=== PATIENT | male | born 1985 | race Caucasian/White ===

== ENCOUNTER 2020-09-07 12:07 | Emergency (ER) | payer OTHER ==
[2020-09-07] MEDS ORDERED: Sodium Chloride 0.9% 2.5 ML Syringe FLUSH PRN (12:16)
[2020-09-07] MEDS ORDERED: Sodium Chloride 0.9% 1,000 ML IV ONE (12:16)
[2020-09-07] MEDS ORDERED: Sodium Chloride 0.9% 10 ML Syringe FLUSH PRN (12:16)
--- NOTE | 2020-09-07 12:19 | PCM.SN.2 ---
- Free Text/Narrative Note: EKG sinus rhythm with a heart rate of 108 [place] 76 [place] 146 QT 449 incomplete right bundle branch block. Impression no acute injury
[2020-09-07 12:39] LABS: BLOOD UREA NITROGEN,BUN 15 mg/dL (7.0-18.0); CARBON DIOXIDE,CO2 21.8 mmol/L (21.0-32.0); CHLORIDE,CL 103 mmol/L (98-107); GLUCOSE RANDOM 166 mg/dL (74-106); POTASSIUM,K 3.6 mmol/L (3.5-5.1); SODIUM,NA 140 mmol/L (136-148)
[2020-09-07] MEDS ORDERED: Iopamidol 755 MG/ML 500 ML Multipack Bottle IVPUSH ONE (13:13)
--- NOTE | 2020-09-07 13:35 | CT ---
Indication: Chest pain. Technique: Multiple contiguous axial images were obtained from the thoracic inlet through the upper abdomen after the intravenous administration of 100 milliliters Isovue 370.This examination is tailored for the evaluation of pulmonary arteries. Please note that all CT scans at this facility use dose modulation, iterative reconstruction, and/or weight-based dosing when appropriate to reduce radiation dose to as low as reasonably achievable. Comparison: None Findings: The aorta is normal in caliber. There is no evidence of aortic dissection. The heart is normal in size. No pericardial effusion is identified. No pulmonary embolism is identified. No mediastinal, hilar, or axillary lymphadenopathy is identified. Mild emphysematous changes of the lungs are identified. No infiltrate, pleural effusion, or pneumothorax is identified. The visualized portions of the liver and spleen are grossly normal. No lytic or blastic lesions of the spine are identified. Impression: Emphysematous changes, particularly within the right upper lobe. The remainder of lobes within the right lung and throughout the left lung are normal. There is a distinctive difference between the right upper lobe in the remainder of the lungs. No pulmonary embolism or aortic dissection is identified. Please note that all CT scans at this facility use dose modulation, iterative reconstruction, and/or weight-based dosing when appropriate to reduce radiation dose to as low as reasonably achievable. Dictated by Nely Ponce MD @ Sep 07 2020 1:24PM Signed by Dr. Nely Ponce @ Sep 07 2020 1:33PM
--- NOTE | 2020-09-07 15:04 | EDM.PDOC ---
ED HPI GENERAL MEDICAL PROBLEM - General Chief Complaint: Cardiovascular Problem Stated Complaint: dizziness Time Seen by Provider: 09/07/20 12:07 Source of Information: Reports: Patient History Limitations: Reports: No Limitations - History of Present Illness INITIAL COMMENTS - FREE TEXT/NARRATIVE: HISTORY AND PHYSICAL: History of present illness: Patient is a 34-year-old male who presents to the ED today with concern of an episode of dizziness that last about 5 minutes after patient was exerting himself for a fire drill. 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 Patient states he was bent over when he stood up he had an episode of dizziness that lasted about 5 minutes and states he had a coughing episode during this time. Patient states he also had sudden onset of swelling of his right hand and was unable to get his glove back on his hand due to swelling. Upon arrival to the ED, patient states he is not having any residual symptoms and all of his symptoms had resolved and he is no longer having swelling of his right hand. Patient states that he does have extensive family history of coronary artery disease in his mother in her 50s due to a heart attack according to patient. Patient states that he himself has not had any health issues or diagnosis. Patient denies any chest pain or exertional chest pain or dyspnea. Patient states that he quit smoking cigarettes 3 weeks ago and denies any other substance use. Patient denies fever, chills, chest pain, shortness of breath, or cough. Denies headache, neck stiff ness, change in vision, syncope, or near syncope. Denies nausea, vomiting, abdominal pain, diarrhea, constipation, or dysuria. Has not noted any blood in urine or stool. Patient has been eating and drinking appropriately. Review of systems: As per history of present illness and below otherwise all systems reviewed and negative. Past medical history: As per history of present illness and as reviewed below otherwise noncontributory. Surgical history: As per history of present illness and as reviewed below otherwise noncontributory. Social history: See social history for further information Family history: As per history of present illness and as reviewed below otherwise noncontributory. Physical exam: General: Patient is alert, oriented, and in no acute distress. Patient laying comfortably on exam table. Patient initially tachycardic 1102-115 on initial exam otherwise Vitals stable and reviewed by me. HEENT: No lip edema, tongue edema, or oropharyngeal edema. No stridor. Otherwise, atraumatic, normocephalic, pupils equal and reactive bilaterally, negative for conjunctival pallor or scleral icterus, mucous membranes moist, TMs normal bilaterally, throat clear, neck supple, nontender, trachea midline. No drooling or trismus noted. No meningeal signs. No hot potato voice noted. Lungs: Clear to auscultation, breath sounds equal bilaterally, chest nontender. Heart: S1S2, tachycardic regular rate and rhythm without overt murmur Abdomen: Soft, nondistended, nontender. Negative for masses or hepatosplenomegaly. Negative for costovertebral tenderness. Pelvis: Stable nontender. Genitourinary: Deferred. Rectal: Deferred. Skin: Intact, warm, dry. No lesions or rashes noted. Extremities: No obvious deformity of the bilateral upper extremities. Patient has full range of motion of bilateral upper and lower extremities without pain or difficulty. Radial pulses are grossly intact bilaterally with capillary refill less than 2 seconds. Atraumatic, negative for cords or calf pain. Neurovascular unremarkable. Neuro: Awake, alert, oriented. Cranial nerves II through XII unremarkable. Cerebellum unremarkable. Motor and sensory unremarkable throughout. Exam nonfocal. Notes: Patient is initially tachycardic 110s to 115's on my initial exam. However, he does appear comfortable and in no acute distress. Patient states that he did have right hand edema after onset of episode of dizziness/coughing. However, on my exam, he does not have any obvious edema of his hand, no erythema or redness noted, and radial pulses intact with capillary refill less than 2 seconds. He does not have any signs of lip edema, tongue edema, or oropharyngeal edema. No stridor. Upon reexamination of patient, he has not had any continual episodes of di zziness, coughing, or edema of his extremities. His heart rate has improved to 80 to 90 bpm with therapeutics today. I did offer patient a repeat troponin 5/6 hours after onset of his symptoms (would need to be drawn around 5/6PM) but patient declines wanting to do this requesting discharge from the ED. All risks versus benefits discussed with patient and expresses understanding. Incendental findings of imaging discussed with patient and for further evaluation with is PCP. Discussed importance for follow-up with a primary care provider. Strict return precautions thoroughly discussed with patient. Voices understanding and is agreeable to plan of care. Denies any further questions or concerns at this time. Diagnostics: EKG, CBC, CMP, UA, Trop, Ang CT, RUE venous US Therapeutics: None Prescription: None Impression: Dizziness, improved Plan: 1. Follow-up with a primary care provider as discussed. Return to the ED as needed and as discussed. Definitive disposition and diagnosis as appropriate pending reevaluation and review of above. - Related Data Allergies Allergy/AdvReac Type Severity Reaction Status Date / Time No Known Allergies Allergy Verified 09/07/20 12:31 Home Meds: Home Meds Rosuvastatin [Crestor] 09/07/20 [History] lisinopriL [Lisinopril] 09/07/20 [History] Past Medical History - Past Health History Medical/Surgical History: Denies Medical/Surgical History Cardiovascular History: Reports: High Cholesterol, Hypertension Genitourinary History: Reports: Other (See Below) - Past Surgical History HEENT Surgical History: Reports: Oral Surgery Cardiovascular Surgical History: Reports: None Social & Family History - Family History Family Medical History: No Pertinent Family History Cardiac: Reports: Heart Failure, Hypertension, MA Endocrine/Metabolic: Reports: Diabetes, type II - Tobacco Use Tobacco Use Status *Q: Former Tobacco User Used Tobacco, but Quit: Yes Month/Year Tobacco Last Used: "couple of weeks ago" - Caffeine Use Caffeine Use: Reports: Energy Drinks - Recreational Drug Use Recreational Drug Use: No ED ROS GENERAL - Review of Systems Review Of Systems: Comprehensive ROS is negative, except as noted in HPI. ED EXAM, GENERAL - Physical Exam Exam: See Below (see dictation) Course - Vital Signs Last Recorded V/S: Last Vital Signs Temp 98.6 F 09/07/20 15:17 Pulse 82 09/07/20 15:17 Resp 17 09/07/20 15:17 BP 129/69 09/07/20 15:17 Pulse Ox 98 09/07/20 15:17 - Orders/Labs/Meds Orders: Active Orders 24 hr Category Date Time Status Cardiac Monitoring [RC] . DIRECTED Care 09/07/20 12:16 Active EKG Documentation Completion [RC] STAT Care 09/07/20 12:16 Active Venous Doppler Upr Ext Rt [US] Stat Exams 09/07/20 13:12 Taken Sodium Chloride 0.9% [Saline Flush] Med 09/07/20 12:16 Active 10 ml FLUSH ASDIRECTED PRN Sodium Chloride 0.9% [Saline Flush] Med 09/07/20 12:16 Active 2.5 ml FLUSH ASDIRECTED PRN Saline Lock Insert [OM.PC] Stat Oth 09/07/20 12:16 Ordered Medication Orders Sodium Chloride (Saline Flush) 10 ml FLUSH ASDIRECTED PRN PRN Reason: Keep Vein Open Last Admin: 09/07/20 12:51 Dose: 10 ml Documented by: GEORGE Sodium Chloride (Saline Flush) 2.5 ml FLUSH ASDIRECTED PRN PRN Reason: Keep Vein Open Last Admin: 09/07/20 12:51 Dose: 2.5 ml Documented by: GEORGE Labs: Laboratory Tests 09/07/20 09/07/20 Range/Units 12:09 12:09 WBC 12.55 H (4.0-11.0) K/uL RBC 5.09 (4.50-5.90) M/uL Hgb 15.8 (13.0-17.0) g/dL Hct 45.7 (38.0-50.0) % MCV 89.8 (80.0-98.0) fL MCH 31.0 (27.0-32.0) pg MCHC 34.6 (31.0-37.0) g/dL RDW Std Deviation 42.3 (28.0-62.0) fl RDW Coeff of Dionisio 13 (11.0-15.0) % Plt Count 395 (150-400) K/uL MPV 9.20 (7.40-12.00) fL Neut % (Auto) 69.8 (48.0-80.0) % Lymph % (Auto) 21.8 (16.0-40.0) % [place] % (Auto) 5.1 (0.0-15.0) % Eos % (Auto) 2.7 (0.0-7.0) % Baso % (Auto) 0.6 (0.0-1.5) % Neut # (Auto) 8.8 H (1.4-5.7) K/uL Lymph # (Auto) 2.7 H (0.6-2.4) K/uL [place] # (Auto) 0.6 (0.0-0.8) K/uL Eos # (Auto) 0.3 (0.0-0.7) K/uL Baso # (Auto) 0.1 (0.0-0.1) K/uL Nucleated RBC % 0.0 /100WBC Nucleated RBCs # 0 K/uL Sodium 140 (136-148) mmol/L Potassium 3.6 (3.5-5.1) mmol/L Chloride 103 (98-107) mmol/L Carbon Dioxide 21.8 (21.0-32.0) mmol/L BUN 15 (7.0-18.0) mg/dL Creatinine 1.2 (0.8-1.3) mg/dL Est Cr Clr Drug Dosing TNP Estimated GFR (MDRD) > 60.0 ml/min Glucose 166 H (74-106) mg/dL Calcium 9.0 (8.5-10.1) mg/dL Total Bilirubin 0.5 (0.2-1.0) mg/dL AST 26 (15-37) IU/L ALT 61 (14-63) IU/L Alkaline Phosphatase 71 (46-116) U/L Troponin I < 0.050 (0.000-0.056) ng/mL Total Protein 7.4 (6.4-8.2) g/dL Albumin 4.0 (3.4-5.0) g/dL Globulin 3.4 (2.6-4.0) g/dL Albumin/Globulin Ratio 1.2 (0.9-1.6) Meds: Medications Generic Name Dose Route Start Last Admin Trade Name Freq PRN Reason Stop Dose Admin Sodium Chloride 10 ml 09/07/20 12:16 09/07/20 12:51 Saline Flush FLUSH 10 ml ASDIRECTED PRN Administration Keep Vein Open Sodium Chloride 2.5 ml 09/07/20 12:16 09/07/20 12:51 Saline Flush FLUSH 2.5 ml ASDIRECTED PRN Administration Keep Vein Open Discontinued Medications Generic Name Dose Route Start Last Admin Trade Name Freq PRN Reason Stop Dose Admin Sodium Chloride 1,000 mls @ 999 mls/hr 09/07/20 12:16 09/07/20 12:51 Normal Saline IV 09/07/20 13:16 999 mls/hr BOLUS ONE Administration Iopamidol 100 ml 09/07/20 13:13 09/07/20 13:14 Isovue Multipack-370 (76%) IVPUSH 09/07/20 13:14 100 ml ONETIME ONE Administration Departure - Departure Time of Disposition: 15:03 Disposition: Home, Self-Care 01 Clinical Impression: Dizziness - Discharge Information Instructions: Dizziness, [id number] Referrals: [facility] [Primary Care Provider] - Forms: ED Department Discharge Additional Instructions: The following information is given to patients seen in the emergency department who are being discharged to home. This information is to outline your options for follow-up care. We provide all patients seen in our emergency department with a follow-up referral. The need for follow-up, as well as the timing and circumstances, are variable depending upon the specifics of your emergency department visit. If you don't have a primary care physician on staff, we will provide you with a referral. We always advise you to contact your personal physician following an emergency department visit to inform them of the circumstance of the visit and for follow-up with them and/or the need for any referrals to a consulting specialist. The emergency department will also refer you to a specialist when appropriate. This referral assures that you have the opportunity for follow-up care with a specialist. All of these measure are taken in an effort to provide you with optimal care, which includes your follow-up. Under all circumstances we always encourage you to contact your private physician who remains a resource for coordinating your care. When calling for follow-up care, please make the office aware that this follow-up is from your recent emergency room visit. If for any reason you are refused follow-up, please contact the [facility] Emergency Department at and asked to speak to the emergency department charge nurse. [facility] [address] [place] [id number] [address] 1. Follow up with a primary care provider as discussed. Return to the ED as needed and as discussed. Sepsis Event Note (ED) - Evaluation Sepsis Screening Result: No Definite Risk - Focused Exam Vital Signs: Vital Signs Temp Pulse Resp BP Pulse Ox 09/07/20 15:17 98.6 F 82 17 129/69 98 09/07/20 12:08 97.2 F 118 H 18 125/76 95 - My Orders Last 24 Hours: My Active Orders 09/07/20 12:16 Cardiac Monitoring [RC] . DIRECTED EKG Documentation Completion [RC] STAT Sodium Chloride 0.9% [Saline Flush] 10 ml FLUSH ASDIRECTED PRN Sodium Chloride 0.9% [Saline Flush] 2.5 ml FLUSH ASDIRECTED PRN Saline Lock Insert [OM.PC] Stat 09/07/20 13:12 Venous Doppler Upr Ext Rt [US] Stat - Assessment/Plan Last 24 Hours: My Active Orders 09/07/20 12:16 Cardiac Monitoring [RC] . DIRECTED EKG Documentation Completion [RC] STAT Sodium Chloride 0.9% [Saline Flush] 10 ml FLUSH ASDIRECTED PRN Sodium Chloride 0.9% [Saline Flush] 2.5 ml FLUSH ASDIRECTED PRN Saline Lock Insert [OM.PC] Stat 09/07/20 13:12 Venous Doppler Upr Ext Rt [US] Stat
[2020-09-07 15:19] VITALS: BP 129/69; PULSE 82
--- NOTE | 2020-09-09 12:42 | US ---
EXAM DATE: 09/07/20 PATIENT'S AGE: 34 Patient: MARINA ESPAÑA Facility: [facility] Site Site : 1985 Study: US-Extremity Venous RT UPPER-09/07/2020 2:30:30 PM Ordering Physician: JAYLON Final Report: INDICATION: Right hand swelling and redness COMPARISON: None. TECHNIQUE: Right upper extremity and neck venous ultrasound performed including rolon scale/2D, color Doppler, and spectral Doppler imaging including spectral waveform analysis. FINDINGS: The right internal jugular, innominate, subclavian, axillary, cephalic, and brachial veins were patent and negative for thrombus. The right basilic vein was not visualized. Remainder negative. IMPRESSION: No evidence for DVT in the right upper extremity and neck venous system. Dictated by Khoa Shen MD @ Sep 07 2020 2:38PM Signed by: Khoa Shen MD @09/07/2020 2:42:18 PM (Electronic Signature) Report Signed by Proxy. BONNIE
== END 2020-09-07 15:17 | disposition home or self-care (01) ==
LOC: MW.ED 12:07
DX: R42 Dizziness and giddiness (principal); E78.00 Pure hypercholesterolemia, unspecified; I10 Essential (primary) hypertension; Z79.899 Other long term (current) drug therapy; Z87.891 Personal history of nicotine dependence
CPT/HCPCS: 36415; 71275; 80053; 84484; 85025; 93971; 99285; J7030; Q9967; 93010; 99284

== ENCOUNTER 2020-12-06 22:05 | Emergency (ER) | payer OTHER ==
[2020-12-06] MEDS ORDERED: Sodium Chloride 0.9% 10 ML Syringe FLUSH PRN (22:18)
[2020-12-06] MEDS ORDERED: Sodium Chloride 0.9% 2.5 ML Syringe FLUSH PRN (22:18)
[2020-12-06 22:52] LABS: BLOOD UREA NITROGEN,BUN 20 mg/dL (7.0-18.0); CARBON DIOXIDE,CO2 25.2 mmol/L (21.0-32.0); CHLORIDE,CL 104 mmol/L (98-107); GLUCOSE RANDOM 166 mg/dL (74-106); SODIUM,NA 142 mmol/L (136-148)
--- NOTE | 2020-12-06 22:52 | CR ---
INDICATION: Chest pain TECHNIQUE: Chest radiograph 1 view COMPARISON: None FINDINGS: Moderate degradation of image quality noted due to body habitus. Mediastinum: The mediastinum is normal in appearance. The heart silhouette is normal in size and morphology. Lung: Both lungs are unremarkable in appearance. No sign of pleural effusion seen. No pneumothorax is identified. Bone and Soft tissue: Unremarkable for age. IMPRESSION: 1. No acute cardiopulmonary disease is seen. Dictated by: Ranulfo Davis MD @ 12/06/2020 22:50:30 (Electronically Signed)
--- NOTE | 2020-12-06 22:57 | EDM.PDOC ---
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 He suddenly got short of breath. Since then he has had a dull pressure in his chest. For 45 seconds he had a very sharp pain in the anterior chest. He remains short of breath. He is unable to say if he had a diaphoresis related to the pain because he was in bunker gear and it is warm out. The patient did not have nausea. The patient is treated for hypertension. He has not smoked for 3 months. He had a stress test 6 months ago that was good according to him. He [facility] because of a similar episode that happened last August. Speed the patient's mother had a coronary bypass at a young age. His grandmother had coronary vessel disease. The patient had no family history of thromboembolic disease and no personal history and has not been immobilized and does not take any exogenous hormones. Review of systems: As per history of present illness and below otherwise all systems reviewed and negative. Past medical history: As per history of present illness and as reviewed below otherwise noncontributory. Surgical history: As per history of present illness and as reviewed below otherwise noncontributory. Social history: No reported history of drug or alcohol abuse. Family history: As per history of present illness and as reviewed below otherwise noncontribu tory. Physical exam: Constitutional - well developed, well-nourished and in no acute distress HEENT - normocephalic, no evidence of trauma - external nose and mouth normal - no mass in neck and no JVD - mucosae moist EYES - full EOM, PERRL, no icterus - no evidence of inflammation, injection, or drainage Respiratory - no respiratory distress, equal bilateral expansion, lungs clear to auscultation and no abnormal lung sounds Cardiovascular - Regular Rhythm with S1 and S2 appreciated and no murmur, gallop or rub. GI - abdomen soft without distension or organomegaly - normal bowel sounds - no guard or rebound Musculoskeletal no gross deformity of long bones or joints - no tenderness, swelling or edema Neurologic - Alert and oriented times four - CN II-XII grossly intact - motor sensory and coordination symmetrically normal Psychiatric - appropriate mood and affect with normal thought content Hematologic - No petechiae or purpura - mucosa appropriate color and sclera not pale - normal nail bed color and refill Integument - no rash or evidence of trauma - normal turgor Diagnostics: [] Therapeutics: [] Impression: [] Plan: [] Definitive disposition and diagnosis as appropriate pending reevaluation and review of above. - Related Data Allergies Allergy/AdvReac Type Severity Reaction Status Date / Time No Known Allergies Allergy Verified 12/06/20 22:13 Home Meds: Home Meds Rosuvastatin [Crestor] 09/07/20 [History] lisinopriL [Lisinopril] 10 mg PO DAILY 09/07/20 [History] Past Medical History - Past Health History Medical/Surgical History: Denies Medical/Surgical History Other HEENT History: eye sx Cardiovascular History: Reports: High Cholesterol, Hypertension Genitourinary History: Reports: Other (See Below) - Infectious Disease History Infectious Disease History: Reports: Chicken Pox - Past Surgical History HEENT Surgical History: Reports: Oral Surgery Cardiovascular Surgical History: Reports: None GI Surgical History: Reports: Appendectomy Social & Family History - Family History Family Medical History: No Pertinent Family History Cardiac: Reports: Heart Failure, Hypertension, ID Endocrine/Metabolic: Reports: Diabetes, type II - Caffeine Use Caffeine Use: Reports: None - Recreational Drug Use Recreational Drug Use: No ED ROS GENERAL - Review of Systems Review Of Systems: Comprehensive ROS is negative, except as noted in HPI. ED EXAM, GENERAL - Physical Exam Exam: See Below Free Text/Narrative:: My physical exam is in the HPI #2 Interpretation EKG Interpretation Comments: EG sinus tachycardia heart rate 115 axis -3 there is a late transition R wave in the precordium ST and T segments appear within normal limits no prior for comparison impression no obvious acute ID Course - Vital Signs Text/Narrative:: She had no symptoms in the emergency department and his troponin remained negative. Plan discharge [facility] feel [facility] is necessary. Last Recorded V/S: Last Vital Signs Temp 37.0 C 12/06/20 22:09 Pulse 98 12/06/20 23:39 Resp 18 12/06/20 23:39 BP 111/67 12/06/20 23:39 Pulse Ox 97 12/06/20 23:39 - Orders/Labs/Meds Orders: Active Orders 24 hr Category Date Time Status EKG Documentation Completion [RC] AM Care 12/06/20 22:18 Active Sodium Chloride 0.9% [Saline Flush] Med 12/06/20 22:18 Active 10 ml FLUSH ASDIRECTED PRN Sodium Chloride 0.9% [Saline Flush] Med 12/06/20 22:18 Active 2.5 ml FLUSH ASDIRECTED PRN Saline Lock Insert [OM.PC] Stat Oth 12/06/20 22:18 Ordered Medication Orders Sodium Chloride (Sodium Chloride 0.9% 10 Ml Syringe) 10 ml FLUSH ASDIRECTED PRN PRN Reason: Keep Vein Open Sodium Chloride (Sodium Chloride 0.9% 2.5 Ml Syringe) 2.5 ml FLUSH ASDIRECTED PRN PRN Reason: Keep Vein Open Labs: Laboratory Tests 12/06/20 12/06/20 12/06/20 Range/Units 22:13 22:13 23:54 WBC 14.91 H (4.0-11.0) K/uL RBC 4.68 (4.50-5.90) M/uL Hgb 14.9 (13.0-17.0) g/dL Hct 42.1 (38.0-50.0) % MCV 90.0 (80.0-98.0) fL MCH 31.8 (27.0-32.0) pg MCHC 35.4 (31.0-37.0) g/dL RDW Std Deviation 43.1 (28.0-62.0) fl RDW Coeff of Dionisio 13 (11.0-15.0) % Plt Count 343 (150-400) K/uL MPV 9.20 (7.40-12.00) fL Neut % (Auto) 78.8 (48.0-80.0) % Lymph % (Auto) 13.7 L (16.0-40.0) % [place] % (Auto) 4.8 (0.0-15.0) % Eos % (Auto) 2.3 (0.0-7.0) % Baso % (Auto) 0.4 (0.0-1.5) % Neut # (Auto) 11.7 H (1.4-5.7) K/uL Lymph # (Auto) 2.1 (0.6-2.4) K/uL [place] # (Auto) 0.7 (0.0-0.8) K/uL Eos # (Auto) 0.4 (0.0-0.7) K/uL Baso # (Auto) 0.1 (0.0-0.1) K/uL Nucleated RBC % 0.0 /100WBC Nucleated RBCs # 0 K/uL Sodium 142 (136-148) mmol/L Potassium 4.0 (3.5-5.1) mmol/L Chloride 104 (98-107) mmol/L Carbon Dioxide 25.2 (21.0-32.0) mmol/L BUN 20 H (7.0-18.0) mg/dL Creatinine 1.2 (0.8-1.3) mg/dL Est Cr Clr Drug Dosing 78.27 mL/min Estimated GFR (MDRD) > 60.0 ml/min Glucose 166 H (74-106) mg/dL Calcium 8.4 L (8.5-10.1) mg/dL Total Bilirubin 0.5 (0.2-1.0) mg/dL AST 30 (15-37) IU/L ALT 72 H (14-63) IU/L Alkaline Phosphatase 67 (46-116) U/L Troponin I < 0.050 < 0.050 (0.000-0.056) ng/mL Total Protein 7.3 (6.4-8.2) g/dL Albumin 3.8 (3.4-5.0) g/dL Globulin 3.5 (2.6-4.0) g/dL Albumin/Globulin Ratio 1.1 (0.9-1.6) Meds: Medications Generic Name Dose Route Start Last Admin Trade Name Freq PRN Reason Stop Dose Admin Sodium Chloride 10 ml 12/06/20 22:18 Sodium Chloride 0.9% 10 Ml Syringe FLUSH ASDIRECTED PRN Keep Vein Open Sodium Chloride 2.5 ml 12/06/20 22:18 Sodium Chloride 0.9% 2.5 Ml Syringe FLUSH ASDIRECTED PRN Keep Vein Open Departure - Departure Time of Disposition: 00:37 Disposition: Home, Self-Care 01 Condition: Good Clinical Impression: Atypical chest pain - Discharge Information Instructions: Nonspecific Chest Pain, Adult, [id number] Referrals: Keron Smith NP [Primary Care Provider] - Forms: ED Department Discharge Additional Instructions: [facility] - Primary Care [address] [place] [address] [facility] [address] [place] [address] [facility] - cardiology [address] [place] [address] The following information is given to patients seen in the emergency department who are being discharged to home. This information is to outline your options for follow-up care. We provide all patients seen in our emergency department with a follow-up referral. The need for follow-up, as well as the timing and circumstances, are variable depending upon the specifics of your emergency department visit. If you don't have a primary care physician on staff, we will provide you with a referral. We always advise you to contact your personal physician following an emergency department visit to inform them of the circumstance of the visit and for follow-up with them and/or the need for any referrals to a consulting specialist. The emergency department will also refer you to a specialist when appropriate. This referral assures that you have the opportunity for follow-up care with a specialist. All of these measure are taken in an effort to provide you with optimal care, which includes your follow-up. Under all circumstances we always encourage you to contact your private ysician who remains a resource for coordinating your care. When calling for follow-up care, please make the office aware that this follow-up is from your recent emergency room visit. If for any reason you are refused follow-up, please contact the [facility] Emergency Department at and asked to speak to the emergency department charge nurse. Sepsis Event Note (ED) - Evaluation Sepsis Screening Result: No Definite Risk - Focused Exam Vital Signs: Vital Signs Temp Pulse Resp BP Pulse Ox 12/06/20 23:39 98 18 111/67 97 12/06/20 22:09 37.0 C 117 H 18 140/87 95 - My Orders Last 24 Hours: My Active Orders 12/06/20 22:18 EKG Documentation Completion [RC] AM Sodium Chloride 0.9% [Saline Flush] 10 ml FLUSH ASDIRECTED PRN Sodium Chloride 0.9% [Saline Flush] 2.5 ml FLUSH ASDIRECTED PRN Saline Lock Insert [OM.PC] Stat - Assessment/Plan Last 24 Hours: My Active Orders 12/06/20 22:18 EKG Documentation Completion [RC] AM Sodium Chloride 0.9% [Saline Flush] 10 ml FLUSH ASDIRECTED PRN Sodium Chloride 0.9% [Saline Flush] 2.5 ml FLUSH ASDIRECTED PRN Saline Lock Insert [OM.PC] Stat
[2020-12-07 01:29] VITALS: BP 119/71; PULSE 90
== END 2020-12-07 00:45 | disposition home or self-care (01) ==
LOC: MW.ED 22:05
DX: R07.89 Other chest pain (principal); R00.0 Tachycardia, unspecified; E78.00 Pure hypercholesterolemia, unspecified; I10 Essential (primary) hypertension; Z79.899 Other long term (current) drug therapy
CPT/HCPCS: 36415; 71045; 71045-26; 80053; 84484; 85025; 93005; 93010; 99284; 99285-25

== ENCOUNTER 2022-01-24 18:34 | Inpatient (IN) | payer OTHER ==
[2022-01-24] MEDS ORDERED: Albuterol/Ipratropium 3.0-0.5 MG/3 ML Neb Soln ONE (18:40)
[2022-01-24] MEDS ORDERED: Albuterol/Ipratropium 3.0-0.5 MG/3 ML Neb Soln NEB STA (18:41)
[2022-01-24] MEDS ORDERED: Albuterol 0.5% 5 MG/ML Neb Soln 20 ML Bottle NEB STA (18:42)
[2022-01-24] MEDS ORDERED: methylPREDNISolone Sodium Succinate 125 MG/2 ML SDV IVPUSH STA (18:42)
[2022-01-24] MEDS ORDERED: Sodium Chloride 0.9% 1,000 ML IV ONE (18:43)
[2022-01-24] MEDS ORDERED: Sodium Chloride 0.9% 10 ML Syringe FLUSH PRN (18:43)
[2022-01-24] MEDS ORDERED: Sodium Chloride 0.9% 2.5 ML Syringe FLUSH PRN (18:43)
[2022-01-24 19:18] LABS: BLOOD UREA NITROGEN,BUN 14 mg/dL (7.0-18.0); CARBON DIOXIDE,CO2 25.8 mmol/L (21.0-32.0); CHLORIDE,CL 101 mmol/L (98-107); GLUCOSE RANDOM 130 mg/dL (74-106); POTASSIUM,K 4.2 mmol/L (3.5-5.1); SODIUM,NA 138 mmol/L (136-148)
[2022-01-24 19:37] LABS: CORONAVIRUS COVID-19 NAA NEGATIVE (NEGATIVE); INFLUENZA A NAA NEGATIVE (NEGATIVE); INFLUENZA B NAA NEGATIVE (NEGATIVE)
[2022-01-24] MEDS ORDERED: Azithromycin 500 MG in Sodium Chloride 0.9% 250 ML IV ONE (20:11)
[2022-01-24] MEDS ORDERED: cefTRIAXone 1 GM in Sodium Chloride 0.9% 50 ML IV ONE (20:11)
[2022-01-24] MEDS ORDERED: Iopamidol 755 MG/ML 500 ML Multipack Bottle IVPUSH ONE (20:17)
[2022-01-24] MEDS ORDERED: cefTRIAXone 1 GM AdvVial IV ONE (20:37)
[2022-01-24] MEDS ORDERED: Sodium Chloride 0.9% 50 ML ONE (20:37)
[2022-01-24] MEDS ORDERED: Acetaminophen 325 MG Tab PO PRN (23:42)
[2022-01-25] MEDS: Albuterol/Ipratropium 3.0-0.5 MG/3 ML Neb Soln NEB SCH ×6 (01:05→21:04)
[2022-01-25] MEDS: Lactated Ringers 1,000 ML IV SCH ×3 (01:06→19:02)
[2022-01-25 06:57] LABS: BLOOD UREA NITROGEN,BUN 15 mg/dL (7.0-18.0); CARBON DIOXIDE,CO2 22.4 mmol/L (21.0-32.0); CHLORIDE,CL 103 mmol/L (98-107); GLUCOSE RANDOM 167 mg/dL (74-106); POTASSIUM,K 4.5 mmol/L (3.5-5.1); SODIUM,NA 136 mmol/L (136-148)
[2022-01-25] MEDS: Enoxaparin 40 MG/0.4 ML Syringe SUBCUT SCH (09:42)
[2022-01-25] MEDS: methylPREDNISolone Sodium Succinate 125 MG/2 ML SDV IVPUSH SCH (09:42)
[2022-01-25] MEDS: Azithromycin 500 MG in Sodium Chloride 0.9% 250 ML IV SCH (09:43)
[2022-01-25] MEDS: cefTRIAXone 1 GM in Sodium Chloride 0.9% 50 ML IV SCH (09:43)
[2022-01-25] MEDS: Codeine/guaiFENesin 10-100 MG/5 ML Syrup 5 ML Cup PO PRN (17:29)
[2022-01-26] MEDS: Codeine/guaiFENesin 10-100 MG/5 ML Syrup 5 ML Cup PO PRN ×4 (00:23→23:33)
[2022-01-26] MEDS: Albuterol/Ipratropium 3.0-0.5 MG/3 ML Neb Soln NEB SCH ×6 (02:32→21:27)
[2022-01-26] MEDS: Lactated Ringers 1,000 ML IV SCH (03:23)
[2022-01-26 07:07] LABS: BLOOD UREA NITROGEN,BUN 14 mg/dL (7.0-18.0); CARBON DIOXIDE,CO2 26.5 mmol/L (21.0-32.0); CHLORIDE,CL 104 mmol/L (98-107); GLUCOSE RANDOM 128 mg/dL (74-106); POTASSIUM,K 3.9 mmol/L (3.5-5.1); SODIUM,NA 139 mmol/L (136-148)
[2022-01-26] MEDS: Rosuvastatin 10 MG Tab PO SCH (08:26)
[2022-01-26] MEDS: Lisinopril 10 MG Tab PO SCH (08:26)
[2022-01-26] MEDS: methylPREDNISolone Sodium Succinate 125 MG/2 ML SDV IVPUSH SCH (08:26)
[2022-01-26] MEDS: Enoxaparin 40 MG/0.4 ML Syringe SUBCUT SCH (08:28)
[2022-01-26] MEDS: amLODIPine 5 MG Tab PO SCH (08:28)
[2022-01-26] MEDS: Azithromycin 500 MG in Sodium Chloride 0.9% 250 ML IV SCH (08:29)
[2022-01-26] MEDS: cefTRIAXone 1 GM in Sodium Chloride 0.9% 50 ML IV SCH (08:29)
[2022-01-26] MEDS: Levofloxacin/Dextrose 5%-Water 750 MG in Premix Bag 1 BAG IV SCH (13:54)
[2022-01-26] MEDS: Fluticasone/Salmeterol 250-50 MCG Inhalation Powder 14/Diskus INH SCH (21:25)
[2022-01-27] MEDS: Albuterol/Ipratropium 3.0-0.5 MG/3 ML Neb Soln NEB SCH ×4 (01:26→14:54)
[2022-01-27 07:06] LABS: BLOOD UREA NITROGEN,BUN 18 mg/dL (7.0-18.0); CARBON DIOXIDE,CO2 27.2 mmol/L (21.0-32.0); CHLORIDE,CL 101 mmol/L (98-107); GLUCOSE RANDOM 156 mg/dL (74-106); POTASSIUM,K 3.4 mmol/L (3.5-5.1); SODIUM,NA 139 mmol/L (136-148)
[2022-01-27] MEDS: Codeine/guaiFENesin 10-100 MG/5 ML Syrup 5 ML Cup PO PRN ×2 (07:49→14:53)
[2022-01-27] MEDS: amLODIPine 5 MG Tab PO SCH (08:00)
[2022-01-27] MEDS: Enoxaparin 40 MG/0.4 ML Syringe SUBCUT SCH (08:00)
[2022-01-27] MEDS: Lisinopril 10 MG Tab PO SCH (08:01)
[2022-01-27] MEDS: methylPREDNISolone Sodium Succinate 125 MG/2 ML SDV IVPUSH SCH (08:01)
[2022-01-27] MEDS: Rosuvastatin 10 MG Tab PO SCH (08:02)
[2022-01-27] MEDS: Fluticasone/Salmeterol 250-50 MCG Inhalation Powder 14/Diskus INH SCH (08:03)
[2022-01-27] MEDS: Levofloxacin/Dextrose 5%-Water 750 MG in Premix Bag 1 BAG IV SCH (11:59)
[2022-01-27 17:45] VITALS: BP 130/74; PULSE 105
== END 2022-01-27 15:30 | disposition home or self-care (01) | DRG 190 ==
LOC: MW.ED 18:34 → MW.MS 23:03
PROVIDERS: ADMIT Student in an Organized Health Care Education/Training Program; ATTEND Student in an Organized Health Care Education/Training Program
DX: J44.0 Chronic obstructive pulmonary disease with (acute) lower respiratory infection (principal); J18.9 Pneumonia, unspecified organism; J45.901 Unspecified asthma with (acute) exacerbation; J44.1 Chronic obstructive pulmonary disease with (acute) exacerbation; Z79.899 Other long term (current) drug therapy; E78.00 Pure hypercholesterolemia, unspecified; Z20.822 Contact with and (suspected) exposure to COVID-19; I10 Essential (primary) hypertension; F17.200 Nicotine dependence, unspecified, uncomplicated; E78.5 Hyperlipidemia, unspecified; Z90.49 Acquired absence of other specified parts of digestive tract
CPT/HCPCS: 0240U; 36415; 71045; 71275; 80048; 80053; 82803; 83735; 84100; 85025; 87040; 94640; 96365; 96367; 96375; 99285; A9270-GY; J0456; J0696; J1650; J1956; J2930; J3490; J7030; J7050; J7120; J7620-GY; Q9967

== ENCOUNTER 2022-02-23 07:48 | Day surgery (SDC) | payer OTHER ==
[~2022-02-23 07:48] MED LIST: Albuterol 0.083% 2.5 MG/3 ML Neb Soln NEB PRN; HYDROmorphone 1 MG/ML Syringe IVPUSH PRN; Lactated Ringers 1,000 ML IV SCH; Metoclopramide 10 MG/2 ML SDV IVPUSH PRN; Morphine 4 MG/ML VIAL IVPUSH PRN; Naloxone 0.4 MG/ML SDV IVPUSH PRN; Ondansetron 4 MG/2 ML SDV IVPUSH PRN; ceFAZolin 2 GM in Premix Bag 1 BAG IV ONE; fentaNYL 100 MCG/2 ML SDV IVPUSH PRN
[2022-02-23] MEDS ORDERED: Propofol 200 MG/20 ML SDV ONE (08:42)
[2022-02-23] MEDS ORDERED: Midazolam 1 MG/ML 2 ML SDV ONE (08:42)
[2022-02-23] MEDS ORDERED: fentaNYL 100 MCG/2 ML SDV ONE ×2 (08:42→11:09)
[2022-02-23] MEDS ORDERED: Bupivacaine 0.5% 10 ML SDV ONE (09:31)
[2022-02-23] MEDS ORDERED: Ropivacaine 0.5% 5 MG/ML 30 ML SDV ONE (09:32)
[2022-02-23] MEDS ORDERED: Dexamethasone 4 MG/ML 5 ML MDV ONE (10:07)
[2022-02-23] MEDS ORDERED: ceFAZolin 1 GM Vial ONE (10:41)
[2022-02-23] MEDS ORDERED: Ondansetron 4 MG/2 ML SDV ONE (10:41)
[2022-02-23] MEDS ORDERED: Ketorolac 30 MG/ML SDV ONE (10:41)
[2022-02-23] MEDS ORDERED: Ondansetron 4 MG/2 ML SDV IVPUSH PRN (11:19)
[2022-02-23] MEDS ORDERED: Morphine 4 MG/ML VIAL IVPUSH PRN (11:19)
[2022-02-23] MEDS ORDERED: Acetaminophen/HYDROcodone 325-5 MG Tab PO PRN (11:19)
[2022-02-23] MEDS ORDERED: Lactated Ringers 1,000 ML IV SCH (11:30)
[2022-02-23 13:05] VITALS: BP 124/70; PULSE 78
== END 2022-02-23 12:47 | disposition home or self-care (01) ==
LOC: MW.SDS 07:48
PROVIDERS: ATTEND Surgery
DX: K42.0 Umbilical hernia with obstruction, without gangrene (principal); F41.9 Anxiety disorder, unspecified; E66.9 Obesity, unspecified; Z68.39 Body mass index [BMI] 39.0-39.9, adult; Z90.49 Acquired absence of other specified parts of digestive tract; Z87.891 Personal history of nicotine dependence; Z80.3 Family history of malignant neoplasm of breast
CPT/HCPCS: 49587; C1781; J0690; J1100; J1885; J2250; J2370; J2704; J2795; J3010; J3490; J7120; J2405

== ENCOUNTER 2022-12-18 17:20 | Inpatient (IN) | payer OTHER ==
[2022-12-18] MEDS ORDERED: Sodium Chloride 0.9% 10 ML Syringe FLUSH PRN (18:06)
[2022-12-18] MEDS ORDERED: Sodium Chloride 0.9% 2.5 ML Syringe FLUSH PRN (18:06)
[2022-12-18 18:35] LABS: CARBON DIOXIDE,CO2 24.9 mmol/L (21.0-32.0)
[2022-12-18] MEDS ORDERED: Sodium Chloride 0.9% 1,000 ML IV STA ×2 (18:36→19:48)
[2022-12-18] MEDS ORDERED: Morphine 4 MG/ML Syringe IVPUSH STA (18:36)
[2022-12-18] MEDS ORDERED: Iopamidol 755 MG/ML 500 ML Multipack Bottle IVPUSH ONE (19:12)
[2022-12-18 19:13] LABS: CORONAVIRUS COVID-19 NAA NEGATIVE (NEGATIVE); INFLUENZA A NAA NEGATIVE (NEGATIVE); INFLUENZA B NAA NEGATIVE (NEGATIVE)
[2022-12-18] MEDS ORDERED: HYDROmorphone 1 MG/ML Syringe IVPUSH STA ×2 (19:48→21:27)
[2022-12-18] MEDS ORDERED: Piperacillin/Tazobactam 3.375 GM in Sodium Chloride 0.9% 50 ML IV STA (19:51)
[2022-12-18] MEDS ORDERED: Sodium Chloride 0.9% 100 ML ONE (20:47)
[2022-12-18] MEDS ORDERED: Pantoprazole 40 MG in Sodium Chloride 0.9% 10 ML IVPUSH STA (20:56)
[2022-12-18] MEDS ORDERED: Sodium Chloride 0.9% 1,000 ML IV ONE (21:16)
[2022-12-18] MEDS ORDERED: Ondansetron 4 MG/2 ML SDV IVPUSH PRN (21:17)
[2022-12-18] MEDS ORDERED: LORazepam 2 MG/ML SDV IVPUSH PRN (21:21)
[2022-12-18] MEDS: Thiamine 200 MG/2 ML MDV IVPUSH SCH (22:25)
[2022-12-18] MEDS: Folic Acid 1 MG/0.2 ML UD Syringe SUBCUT SCH (22:25)
[2022-12-18] MEDS: Sodium Chloride 0.9% 1,000 ML IV SCH (22:26)
[2022-12-19] MEDS: HYDROmorphone 2 MG/ML Syringe IVPUSH PRN ×7 (00:34→23:27)
[2022-12-19] MEDS ORDERED: Sodium Chloride 0.9% 50 ML ONE (01:18)
[2022-12-19] MEDS: Piperacillin/Tazobactam 3.375 GM in Sodium Chloride 0.9% 50 ML IV SCH ×2 (01:41→09:58)
[2022-12-19] MEDS: Sodium Chloride 0.9% 1,000 ML IV SCH ×4 (04:18→20:29)
[2022-12-19 07:09] LABS: CARBON DIOXIDE,CO2 22.7 mmol/L (21.0-32.0)
[2022-12-19] MEDS: Pantoprazole 40 MG in Sodium Chloride 0.9% 10 ML IVPUSH SCH ×2 (08:24→20:58)
[2022-12-19] MEDS: Folic Acid 1 MG/0.2 ML UD Syringe SUBCUT SCH (08:26)
[2022-12-19] MEDS: Thiamine 200 MG/2 ML MDV IVPUSH SCH (08:30)
[2022-12-19] MEDS: Piperacillin/Tazobactam 3.375 GM in Sodium Chloride 0.9% 100 ML IV SCH ×3 (09:18→21:03)
[2022-12-20] MEDS: Sodium Chloride 0.9% 1,000 ML IV SCH ×3 (02:36→14:12)
[2022-12-20] MEDS: Piperacillin/Tazobactam 3.375 GM in Sodium Chloride 0.9% 100 ML IV SCH ×4 (02:37→20:17)
[2022-12-20] MEDS: HYDROmorphone 2 MG/ML Syringe IVPUSH PRN ×2 (02:42→06:55)
[2022-12-20 06:51] LABS: CARBON DIOXIDE,CO2 22.7 mmol/L (21.0-32.0); POTASSIUM,K 3.9 mmol/L (3.5-5.1)
[2022-12-20] MEDS: Pantoprazole 40 MG in Sodium Chloride 0.9% 10 ML IVPUSH SCH ×2 (08:48→20:18)
[2022-12-20] MEDS: Thiamine 200 MG/2 ML MDV IVPUSH SCH (08:54)
[2022-12-20] MEDS: Folic Acid 1 MG/0.2 ML UD Syringe SUBCUT SCH (08:57)
[2022-12-20] MEDS ORDERED: Phosphorus #1 250 MG Tab PO ONE (09:36)
[2022-12-20] MEDS: oxyCODONE 5 MG Tab PO PRN ×3 (10:47→18:45)
[2022-12-20] MEDS: Heparin Sodium 5,000 Units/ML Vial SUBCUT SCH ×2 (15:20→22:08)
[2022-12-20] MEDS: Lisinopril 10 MG Tab PO SCH (16:29)
[2022-12-20] MEDS: amLODIPine 5 MG Tab PO SCH (16:29)
[2022-12-20] MEDS: Cyclobenzaprine 5 MG Tab PO PRN (22:07)
[2022-12-21] MEDS: oxyCODONE 5 MG Tab PO PRN ×6 (00:36→22:59)
[2022-12-21] MEDS: Piperacillin/Tazobactam 3.375 GM in Sodium Chloride 0.9% 100 ML IV SCH ×4 (03:25→22:00)
[2022-12-21] MEDS: Heparin Sodium 5,000 Units/ML Vial SUBCUT SCH ×3 (06:08→22:00)
[2022-12-21 06:36] LABS: CARBON DIOXIDE,CO2 24.1 mmol/L (21.0-32.0); POTASSIUM,K 3.5 mmol/L (3.5-5.1)
[2022-12-21 08:40] LABS: HEMOGLOBIN A1C 6.5 %
[2022-12-21] MEDS ORDERED: Potassium Phosphates 30 MMOLE in Sodium Chloride 0.9% 500 ML IV ONE (09:00)
[2022-12-21] MEDS: Pantoprazole 40 MG in Sodium Chloride 0.9% 10 ML IVPUSH SCH ×2 (09:06→22:00)
[2022-12-21] MEDS: Thiamine 200 MG/2 ML MDV IVPUSH SCH (09:12)
[2022-12-21] MEDS: Lisinopril 10 MG Tab PO SCH (09:34)
[2022-12-21] MEDS: Folic Acid 1 MG/0.2 ML UD Syringe SUBCUT SCH (09:35)
[2022-12-21] MEDS: amLODIPine 5 MG Tab PO SCH (09:35)
[2022-12-21] MEDS: Sodium Chloride 0.9% 1,000 ML IV SCH ×2 (12:36→19:46)
[2022-12-22] MEDS: oxyCODONE 5 MG Tab PO PRN ×3 (03:18→12:54)
[2022-12-22] MEDS: Piperacillin/Tazobactam 3.375 GM in Sodium Chloride 0.9% 100 ML IV SCH ×4 (03:18→20:55)
[2022-12-22] MEDS: Heparin Sodium 5,000 Units/ML Vial SUBCUT SCH ×3 (05:59→22:32)
[2022-12-22 06:37] LABS: CARBON DIOXIDE,CO2 23.2 mmol/L (21.0-32.0); POTASSIUM,K 3.5 mmol/L (3.5-5.1)
[2022-12-22] MEDS: Lisinopril 10 MG Tab PO SCH (08:32)
[2022-12-22] MEDS: amLODIPine 5 MG Tab PO SCH (08:34)
[2022-12-22] MEDS: Pantoprazole 40 MG in Sodium Chloride 0.9% 10 ML IVPUSH SCH ×2 (08:41→20:55)
[2022-12-22] MEDS: Folic Acid 1 MG/0.2 ML UD Syringe SUBCUT SCH (08:42)
[2022-12-22] MEDS: Thiamine 200 MG/2 ML MDV IVPUSH SCH (08:43)
[2022-12-22] MEDS ORDERED: Iopamidol 755 MG/ML 500 ML Multipack Bottle IVPUSH STA (10:33)
[2022-12-22] MEDS: Sodium Chloride 0.9% 1,000 ML IV SCH (15:08)
[2022-12-22] MEDS: HYDROmorphone 1 MG/ML Syringe IVPUSH PRN ×3 (15:29→22:31)
[2022-12-23] MEDS: Sodium Chloride 0.9% 1,000 ML IV SCH ×3 (00:17→15:18)
[2022-12-23] MEDS: HYDROmorphone 1 MG/ML Syringe IVPUSH PRN ×3 (02:13→09:03)
[2022-12-23] MEDS: Piperacillin/Tazobactam 3.375 GM in Sodium Chloride 0.9% 100 ML IV SCH ×4 (03:10→21:26)
[2022-12-23] MEDS: Heparin Sodium 5,000 Units/ML Vial SUBCUT SCH ×3 (06:04→23:02)
[2022-12-23 07:26] LABS: CARBON DIOXIDE,CO2 20.4 mmol/L (21.0-32.0); POTASSIUM,K 3.3 mmol/L (3.5-5.1)
[2022-12-23] MEDS: Pantoprazole 40 MG in Sodium Chloride 0.9% 10 ML IVPUSH SCH ×2 (09:08→21:26)
[2022-12-23] MEDS: amLODIPine 5 MG Tab PO SCH (09:14)
[2022-12-23] MEDS: Lisinopril 10 MG Tab PO SCH (09:15)
[2022-12-23] MEDS: Thiamine 200 MG/2 ML MDV IVPUSH SCH (09:17)
[2022-12-23] MEDS: Folic Acid 1 MG/0.2 ML UD Syringe SUBCUT SCH (09:18)
[2022-12-23] MEDS ORDERED: Potassium Phosphates 30 MMOLE in Sodium Chloride 0.9% 1,000 ML IV ONE (10:30)
[2022-12-23] MEDS: Morphine 4 MG/ML Syringe IVPUSH PRN ×5 (10:55→23:06)
[2022-12-23] MEDS ORDERED: fentaNYL 50 MCG/ML SDV IVPUSH SCH (18:45)
[2022-12-23] MEDS ORDERED: fentaNYL 50 MCG/ML SDV IVPUSH PRN (18:58)
[2022-12-23] MEDS ORDERED: VANCOmycin 2 GM/400 ML 2 GM in Premix Bag 1 BAG IV ONE (19:00)
[2022-12-23] MEDS: Cyclobenzaprine 5 MG Tab PO PRN (23:05)
[2022-12-24] MEDS: Morphine 4 MG/ML Syringe IVPUSH PRN ×8 (01:42→23:56)
[2022-12-24] MEDS: Sodium Chloride 0.9% 1,000 ML IV SCH ×5 (03:15→18:26)
[2022-12-24] MEDS: Piperacillin/Tazobactam 3.375 GM in Sodium Chloride 0.9% 100 ML IV SCH ×2 (03:16→09:27)
[2022-12-24] MEDS: Heparin Sodium 5,000 Units/ML Vial SUBCUT SCH ×3 (07:02→23:51)
[2022-12-24 07:34] LABS: CARBON DIOXIDE,CO2 19.3 mmol/L (21.0-32.0); POTASSIUM,K 3.7 mmol/L (3.5-5.1)
[2022-12-24] MEDS: Cyclobenzaprine 5 MG Tab PO PRN ×2 (08:19→20:47)
[2022-12-24] MEDS: amLODIPine 5 MG Tab PO SCH (08:20)
[2022-12-24] MEDS: Lisinopril 10 MG Tab PO SCH (08:21)
[2022-12-24] MEDS: Thiamine 200 MG/2 ML MDV IVPUSH SCH (08:23)
[2022-12-24] MEDS: Pantoprazole 40 MG in Sodium Chloride 0.9% 10 ML IVPUSH SCH ×2 (08:27→20:47)
[2022-12-24] MEDS: Folic Acid 1 MG/0.2 ML UD Syringe SUBCUT SCH (08:28)
[2022-12-24] MEDS ORDERED: Sodium Chloride 0.9% 1,000 ML IV ONE (09:10)
[2022-12-25] MEDS: Sodium Chloride 0.9% 1,000 ML IV SCH ×3 (02:31→10:36)
[2022-12-25] MEDS: oxyCODONE 5 MG Tab PO PRN ×5 (02:35→22:36)
[2022-12-25 06:41] LABS: CARBON DIOXIDE,CO2 21.4 mmol/L (21.0-32.0); POTASSIUM,K 3.4 mmol/L (3.5-5.1)
[2022-12-25] MEDS: Heparin Sodium 5,000 Units/ML Vial SUBCUT SCH ×3 (06:47→22:35)
[2022-12-25] MEDS: Folic Acid 1 MG/0.2 ML UD Syringe SUBCUT SCH (08:34)
[2022-12-25] MEDS: Thiamine 200 MG/2 ML MDV IVPUSH SCH (08:36)
[2022-12-25] MEDS: Lisinopril 10 MG Tab PO SCH (08:37)
[2022-12-25] MEDS: amLODIPine 5 MG Tab PO SCH (08:38)
[2022-12-25] MEDS: Pantoprazole 40 MG in Sodium Chloride 0.9% 10 ML IVPUSH SCH ×2 (08:39→20:08)
[2022-12-25] MEDS: Morphine 4 MG/ML Syringe IVPUSH PRN (08:40)
[2022-12-25] MEDS: Potassium Chloride 20 MEQ Tab.ER PO SCH ×2 (10:08→20:08)
[2022-12-25] MEDS: Metoprolol Tartrate 25 MG Tab PO SCH (13:49)
[2022-12-25] MEDS: Acetaminophen 325 MG Tab PO PRN (21:20)
[2022-12-25] MEDS: Cyclobenzaprine 5 MG Tab PO PRN (22:35)
[2022-12-26] MEDS: Metoprolol Tartrate 25 MG Tab PO SCH (00:35)
[2022-12-26] MEDS: oxyCODONE 5 MG Tab PO PRN ×2 (04:07→09:15)
[2022-12-26] MEDS: Heparin Sodium 5,000 Units/ML Vial SUBCUT SCH (06:06)
[2022-12-26 06:52] LABS: CARBON DIOXIDE,CO2 22.8 mmol/L (21.0-32.0); POTASSIUM,K 3.4 mmol/L (3.5-5.1)
[2022-12-26] MEDS ORDERED: Iopamidol 755 MG/ML 500 ML Multipack Bottle IVPUSH ONE (07:42)
[2022-12-26] MEDS: Pantoprazole 40 MG in Sodium Chloride 0.9% 10 ML IVPUSH SCH (08:21)
[2022-12-26] MEDS: Folic Acid 1 MG/0.2 ML UD Syringe SUBCUT SCH (08:22)
[2022-12-26] MEDS: Acetaminophen 325 MG Tab PO PRN (08:22)
[2022-12-26] MEDS: amLODIPine 5 MG Tab PO SCH (08:23)
[2022-12-26] MEDS: Cyclobenzaprine 5 MG Tab PO PRN (08:23)
[2022-12-26] MEDS: Lisinopril 10 MG Tab PO SCH (08:23)
[2022-12-26] MEDS: Thiamine 200 MG/2 ML MDV IVPUSH SCH (08:24)
[2022-12-26 12:14] VITALS: BP 140/84; PULSE 111
== END 2022-12-26 12:45 | DRG 439 ==
LOC: MW.ED 17:20 → MW.MS 21:17 → OBSVTOIN 12-20 09:39 → MW.MS 12-20 11:21
PROVIDERS: ADMIT Internal Medicine; ATTEND Internal Medicine
DX: K85.00 Idiopathic acute pancreatitis without necrosis or infection (principal); N13.30 Unspecified hydronephrosis; R18.8 Other ascites; Z68.41 Body mass index [BMI] 40.0-44.9, adult; K59.00 Constipation, unspecified; K29.80 Duodenitis without bleeding; I10 Essential (primary) hypertension; E11.9 Type 2 diabetes mellitus without complications; F10.90 Alcohol use, unspecified, uncomplicated; E78.00 Pure hypercholesterolemia, unspecified; E66.01 Morbid (severe) obesity due to excess calories; F17.210 Nicotine dependence, cigarettes, uncomplicated; J44.9 Chronic obstructive pulmonary disease, unspecified; Z20.822 Contact with and (suspected) exposure to COVID-19; Z90.49 Acquired absence of other specified parts of digestive tract; Z79.899 Other long term (current) drug therapy; Z98.890 Other specified postprocedural states; Z82.49 Family history of ischemic heart disease and other diseases of the circulatory system
CPT/HCPCS: 0240U; 36415; 71045; 71045-26; 74174; 74174-26; 74177; 74177-26; 76705; 76705-26; 76870; 76870-26; 80053; 80061; 80202; 81001; 82947; 83036; 83605; 83690; 83735; 84100; 85007; 85025; 85027; 87040; 93976; 93976-26; 96361; 96365; 96366; 96372; 96375; 96376; 99285; 99285-25; A9270-GY; C9113; G0378; J1170; J1644; J2270; J2543; J3010; J3370; J3411; J3490; J7030; J7040; J7050; Q9967

== ENCOUNTER 2024-01-10 08:46 | Emergency (ER) | payer OTHER ==
[2024-01-10] MEDS: predniSONE 20 MG Tab PO ONE (09:42)
[2024-01-10 09:43] LABS: CORONAVIRUS COVID-19 NAA NEGATIVE (NEGATIVE); INFLUENZA A NAA NEGATIVE (NEGATIVE); INFLUENZA B NAA NEGATIVE (NEGATIVE); RESPIRATORY SYNCYTIAL VIR NAA NEGATIVE (NEGATIVE)
[2024-01-10] MEDS: Albuterol/Ipratropium 3.0-0.5 MG/3 ML Neb Soln NEB ONE ×2 (09:43→11:19)
[2024-01-10 09:49] LABS: BASOPHILS ABSOLUTE AUTO 0.13 K/uL (0.00-0.20); BASOPHILS PERCENT AUTO 0.9 % (0.0-1.0); EOSINOPHILS ABSOLUTE AUTO 1.13 K/uL (0.00-0.45); EOSINOPHILS PERCENT AUTO 8.1 % (0.0-6.0); HEMATOCRIT 44.1 % (42.0-52.0); HEMOGLOBIN 15.7 g/dL (14.0-18.0); IMMATURE GRAN ABSOLUTE AUTO 0.07 K/uL (0.00-0.05); IMMATURE GRAN PERCENT AUTO 0.5 % (0.0-0.4); LYMPHOCYTES ABSOLUTE AUTO 2.05 K/uL (1.00-4.80); LYMPHOCYTES PERCENT AUTO 14.7 % (24.0-44.0); MEAN CORPUSCULAR HEMOGLOBIN 31.5 pg (28.0-32.0); MEAN CORPUSCULAR HGB CONC 35.6 g/dL (32.0-36.0); MEAN CORPUSCULAR VOLUME 88.4 fL (83.0-99.0); MEAN PLATELET VOLUME 8.7 fL (9.4-12.4); MONOCYTES ABSOLUTE AUTO 0.82 K/uL (0.00-0.80); MONOCYTES PERCENT AUTO 5.9 % (0.0-8.0); NEUTROPHILS ABSOLUTE AUTO 9.79 K/uL (1.80-7.70); NEUTROPHILS PERCENT AUTO 69.9 % (41.0-71.0); PLATELET COUNT,PLT 353 K/uL (150-400); RED BLOOD CELL COUNT 4.99 M/uL (4.52-5.90); WHITE BLOOD CELL COUNT,WBC 13.99 K/uL (3.9-11.3)
[2024-01-10 10:10] LABS: INR 1.07 (0.86-1.11)
[2024-01-10 10:30] LABS: A/G RATIO 0.9 (0.9-1.6); ALBUMIN 3.6 g/dL (3.4-5.0); BILIRUBIN TOTAL 0.8 mg/dL (0.2-1.0); CALCIUM 9.2 mg/dL (8.5-10.1); CARBON DIOXIDE,CO2 23.1 mmol/L (21.0-32.0); CREATININE 0.9 mg/dL (0.8-1.3); EST CRCL DRUG DOSING (CG) 101.41 mL/min; PROTEIN TOTAL,TP 7.6 g/dL (6.4-8.2)
[2024-01-10 12:37] VITALS: BP 124/80
[2024-01-10] MEDS: Albuterol 0.083% 2.5 MG/3 ML Neb Soln NEB ONE (14:39)
[2024-01-10 14:41] VITALS: PULSE 105
== END 2024-01-10 14:57 | disposition home or self-care (01) ==
LOC: MW.ED 08:46
DX: J45.909 Unspecified asthma, uncomplicated (principal); E78.00 Pure hypercholesterolemia, unspecified; I10 Essential (primary) hypertension; E66.9 Obesity, unspecified; Z79.899 Other long term (current) drug therapy; Z86.19 Personal history of other infectious and parasitic diseases; Z86.16 Personal history of COVID-19; Z68.41 Body mass index [BMI] 40.0-44.9, adult
CPT/HCPCS: 0241U; 36415; 71046; 80053; 83880; 84484; 85025; 85610; 93005; 94640; 99285; A9270; J7620-GY

== ENCOUNTER 2024-07-15 21:20 | Emergency (ER) | payer OTHER ==
[2024-07-15] MEDS ORDERED: Sodium Chloride 0.9% 10 ML Syringe FLUSH PRN (21:22)
[2024-07-15 22:23] LABS: BASOPHILS ABSOLUTE AUTO 0.11 K/uL (0.00-0.20); BASOPHILS PERCENT AUTO 0.9 % (0.0-1.0); EOSINOPHILS ABSOLUTE AUTO 0.33 K/uL (0.00-0.45); EOSINOPHILS PERCENT AUTO 2.8 % (0.0-6.0); IMMATURE GRAN ABSOLUTE AUTO 0.04 K/uL (0.00-0.05); IMMATURE GRAN PERCENT AUTO 0.3 % (0.0-0.4); LYMPHOCYTES ABSOLUTE AUTO 2.28 K/uL (1.00-4.80); LYMPHOCYTES PERCENT AUTO 19.2 % (24.0-44.0); MEAN CORPUSCULAR HEMOGLOBIN 31.1 pg (28.0-32.0); MEAN CORPUSCULAR HGB CONC 35.6 g/dL (32.0-36.0); MEAN CORPUSCULAR VOLUME 87.4 fL (83.0-99.0); MEAN PLATELET VOLUME 8.8 fL (9.4-12.4); MONOCYTES ABSOLUTE AUTO 0.54 K/uL (0.00-0.80); MONOCYTES PERCENT AUTO 4.5 % (0.0-8.0); NEUTROPHILS PERCENT AUTO 72.3 % (41.0-71.0); PLATELET COUNT,PLT 400 K/uL (150-400); RED BLOOD CELL COUNT 5.15 M/uL (4.52-5.90)
[2024-07-15] MEDS: Labetalol 100 MG/20 ML MDV IVPUSH ONE (22:23)
[2024-07-15 22:53] LABS: A/G RATIO 1.1 (0.9-1.6); BILIRUBIN TOTAL 0.7 mg/dL (0.2-1.0); CALCIUM 9.5 mg/dL (8.5-10.1); CREATININE 1.1 mg/dL (0.8-1.3); EST CRCL DRUG DOSING (CG) 82.97 mL/min; MAGNESIUM 1.8 mg/dL (1.8-2.4); POTASSIUM,K 3.7 mmol/L (3.5-5.1); PROTEIN TOTAL,TP 7.5 g/dL (6.4-8.2)
[2024-07-15] MEDS: Iopamidol 755 MG/ML 500 ML Multipack Bottle IVPUSH ONE (23:11)
[2024-07-16] MEDS: Ketorolac 30 MG/ML SDV IVPUSH ONE (00:27)
[2024-07-16 00:37] VITALS: BP 127/86; PULSE 86
== END 2024-07-16 00:32 | disposition home or self-care (01) ==
LOC: MW.ED 21:20
DX: R09.1 Pleurisy (principal); R07.9 Chest pain, unspecified; R20.2 Paresthesia of skin; I10 Essential (primary) hypertension; J44.9 Chronic obstructive pulmonary disease, unspecified; E78.00 Pure hypercholesterolemia, unspecified; Z82.49 Family history of ischemic heart disease and other diseases of the circulatory system; E66.9 Obesity, unspecified; Z79.899 Other long term (current) drug therapy; Z90.49 Acquired absence of other specified parts of digestive tract; Z68.41 Body mass index [BMI] 40.0-44.9, adult; Z75.8 Other problems related to medical facilities and other health care
CPT/HCPCS: 36415; 71045; 71275; 80053; 82947; 83735; 83880; 84484; 85025; 93005; 96374; 96375; 99285; J1885; J1921; Q9967; 93010; 99284; J1920

== ENCOUNTER 2025-08-19 17:14 | Emergency (ER) | payer OTHER ==
[2025-08-19] MEDS: Diphtheria,Pertussis(Acell),Tetanus Vaccine 0.5 ML Syringe IM ONE (19:55)
[2025-08-19 20:25] VITALS: BP 141/89; PULSE 78
== END 2025-08-19 20:24 | disposition home or self-care (01) ==
LOC: MW.ED 17:14
DX: S61.012A Laceration without foreign body of left thumb without damage to nail, initial encounter (principal); I10 Essential (primary) hypertension; E78.00 Pure hypercholesterolemia, unspecified; E66.9 Obesity, unspecified; Z79.899 Other long term (current) drug therapy; Z79.51 Long term (current) use of inhaled steroids; Z90.49 Acquired absence of other specified parts of digestive tract; Z68.39 Body mass index [BMI] 39.0-39.9, adult; W26.8XXA Contact with other sharp object(s), not elsewhere classified, initial encounter
CPT/HCPCS: 12001; 99282; J2003; 99283